=== PATIENT | female | born 1950 | race Asian ===

== ENCOUNTER → 2017-05-24 | Outpatient (CLI) | payer BC ==
[~2017-05-24] MED LIST: ALEN70TA4 PO; BROM0.07; CALCTAB5 PO; GATI0.5S OPR; PRED1SUS3 OPL; VITB2 PO
--- NOTE | 2017-05-24 15:52 | MAMMOGRAPHY REPORT ---
BILATERAL DIGITAL SCREENING MAMMOGRAM TOMOSYNTHESIS WITH CAD: 05/24/2017 CLINICAL HISTORY: Routine screening. Patient has no complaints. TECHNIQUE: Breast tomosynthesis in addition to standard 2D mammography was performed. Current study was also evaluated with a Computer Aided Detection (CAD) system. COMPARISON: Comparison is made to exams dated: 05/11/2016 mammogram, 05/09/2015 mammogram, 05/07/2014 m ammogram, 01/30/2010 mammogram, 10/29/2001 mammogram, and 10/10/2000 mammogram - [facility] nter. BREAST COMPOSITION: The tissue of both breasts is heterogeneously dense, which may obscure small mas ses. FINDINGS: No suspicious masses, calcifications, or areas of architectural distortion are noted in ei ther breast. There has been no significant interval change compared to prior exams. IMPRESSION: ACR BI-RADS CATEGORY 1: NEGATIVE There is no mammographic evidence of malignancy. A 1 year screening mammogram is recommended. The pa tient will receive written notification of the results. Approximately 10% of breast cancers are not detected with mammography. A negative mammographic report should not delay biopsy if a clinically suggestive mass is present. Anna Solis M.D. /:05/24/2017 14:59:40 Emergency Dispatch Operator: Ayleen Schwab, [facility] letter sent: Normal 1/2 BI-RADS Code: ACR BI-RADS Category 1: Negative
== END | disposition home or self-care (01) ==
LOC: C.MAMM 12:46
PROVIDERS: ATTEND Internal Medicine
DX: Z12.31 Encounter for screening mammogram for malignant neoplasm of breast (principal)

== ENCOUNTER → 2017-08-14 | Outpatient (CLI) | payer OTHER ==
--- NOTE | 2017-08-14 09:37 | DIAGNOSTIC IMAGING REPORT ---
ULTRASOUND RIGHT UPPER QUADRANT ABDOMEN CLINICAL HISTORY: Gallbladder polyp. Family history of liver cancer. COMPARISON STUDY: Abdominal ultrasound dated 05/11/2016. TECHNIQUE: Real-time, grayscale, and color flow sonography of the right upper quadrant of the abdomen was performed. Images are reviewed in the transverse and longitudinal planes. FINDINGS: Liver: The liver is normal in size and echotexture. There is no intrahepatic biliary ductal dilatation. The main portal vein is patent. There is no sonographic evidence of hepatic mass lesion. Gallbladder: Scattered (at least 6) gallbladder polyps are incidentally noted and measure up to 5 mm. The gallbladder is normal in appearance. No gallstones are identified. There is no gallbladder wall thickening or pericholecystic fluid. A sonographic Lancaster's sign is reportedly absent. The common bile duct measures up to 0.8 cm in diameter. Pancreas: Visualized portions of the pancreatic head and body are normal in appearance. Right kidney: Survey images of the right kidney demonstrate normal size and echotexture. There is no hydronephrosis. Ascites: None. IMPRESSION: 1. No acute sonographic abnormality is seen in the right upper quadrant. No gallstones are identified. 2. Scattered gallbladder polyps are similar to previous and measure up to 5 mm. 3. There is no sonographic evidence of hepatic mass lesion. Electronically signed by: Yonny Roy M.D. 08/14/2017 9:36 AM Dictated Date/Time: 08/14/2017 9:34 AM
== END | disposition home or self-care (01) ==
LOC: C.ULTR 08:26
PROVIDERS: ATTEND Internal Medicine
DX: K82.4 Cholesterolosis of gallbladder (principal); Z80.0 Family history of malignant neoplasm of digestive organs